=== PATIENT | female | born 1990 | race Caucasian/White ===

== ENCOUNTER 2021-10-26 05:39 | Inpatient (IN) | payer OTHER ==
[2021-10-26 07:03] LABS: ALBUMIN 2.8 g/dL (3.4-5.0); BILIRUBIN - TOTAL 0.4 mg/dL (0.2-1.0); BUN/CREAT RATIO (CALC) 10.9 RATIO; CREATININE 0.46 mg/dL (0.51-0.95); GLOBULIN (CALCULATION) 4.1 g/dL; POTASSIUM 2.7 mmol/L (3.5-5.1); TOTAL PROTEIN 6.9 g/dL (6.4-8.2)
[2021-10-26 07:16] LABS: HCT 30.4 % (37.0-47.0); HGB 10.6 g/dl (12.5-16.0); MCHC 34.9 g/dL (32.0-36.0); MCV 88.9 fL (78.0-100.0); MPV 12.3 fL (6.0-9.5); RBC 3.42 M/uL (4.20-5.40); RDW 13.1 % (11.5-14.0); WBC 14.5 K/uL (4.0-10.5)
[2021-10-26 07:18] LABS: BILIRUBIN NEGATIVE (NEGATIVE); BLOOD NEGATIVE Ery/uL (NEGATIVE); CLARITY CLEAR (CLEAR); COLOR YELLOW (YELLOW); GLUCOSE (U) NORMAL (NORMAL); LEUKOCYTES TRACE Leu/uL (NEGATIVE); NITRITE NEGATIVE (NEGATIVE); PROTEIN NEGATIVE (NEGATIVE); SPECIFIC GRAVITY 1.015 (1.001-1.030)
[2021-10-26 07:21] LABS: INR 0.99 (0.9-1.2); PROTHROMBIN TIME 12.5 SECONDS (11.8-13.4); PTT 26.4 SECONDS (24.4-34.7)
[2021-10-26 07:27] LABS: AMPHETAMINES NEGATIVE (NEGATIVE); BARBITURATES NEGATIVE (NEGATIVE); ECSTASY (MDMA) NEGATIVE (NEGATIVE); MARIJUANA (THC) NEGATIVE (NEGATIVE); METHADONE NEGATIVE (NEGATIVE); OPIATES NEGATIVE (NEGATIVE); OXYCODONE NEGATIVE (NEGATIVE)
[2021-10-26 07:33] LABS: BACTERIA 1+; URINARY RBC RARE
[2021-10-26 07:34] LABS: SQUAMOUS EPITHELIAL CELLS 20-50
[2021-10-26 16:52] LABS: BILIRUBIN NEGATIVE (NEGATIVE); BLOOD NEGATIVE Ery/uL (NEGATIVE); CLARITY CLEAR (CLEAR); COLOR YELLOW (YELLOW); GLUCOSE (U) NORMAL (NORMAL); LEUKOCYTES NEGATIVE Leu/uL (NEGATIVE); NITRITE NEGATIVE (NEGATIVE); PROTEIN NEGATIVE (NEGATIVE); SPECIFIC GRAVITY 1.015 (1.001-1.030)
[2021-10-27 06:42] LABS: HCT 24.6 % (37.0-47.0); HGB 8.5 g/dl (12.5-16.0); MCH 31.1 pg (25.0-31.0); MCHC 34.6 g/dL (32.0-36.0); MCV 90.1 fL (78.0-100.0); MPV 11.2 fL (6.0-9.5); RBC 2.73 M/uL (4.20-5.40); WBC 13.8 K/uL (4.0-10.5)
[2021-10-27 07:13] LABS: BILIRUBIN - TOTAL 0.2 mg/dL (0.2-1.0); BUN/CREAT RATIO (CALC) 12.5 RATIO; CREATININE 0.56 mg/dL (0.51-0.95); GLOBULIN (CALCULATION) 3.1 g/dL; POTASSIUM 3.2 mmol/L (3.5-5.1); TOTAL PROTEIN 5.1 g/dL (6.4-8.2)
[2021-10-28] MEDS ORDERED: FEOSOL325 MG PO (11:14)
[2021-10-28] MEDS ORDERED: POTASSIUM CHLO20 ME2 PO (11:15)
[2021-10-28] MEDS ORDERED: MAG-OXIDE 400M400 MG PO (11:15)
[2021-10-28] MEDS ORDERED: KETOROLAC TROME10 MG PO (11:15)
[2021-10-28] MEDS ORDERED: VITAMIN D325 MC1 PO (11:16)
[2021-10-28] MEDS ORDERED: FOLIC ACID1 MG PO (11:16)
[2021-10-28] MEDS ORDERED: PRENATAL FORMU1 EACH PO (11:16)
[2021-10-28] MEDS ORDERED: COLACE100 MG PO (11:16)
== END 2021-10-28 13:35 | disposition home or self-care (01) | DRG 786 ==
LOC: FOB 05:39
PROVIDERS: ADMIT Specialist
PROC: 10D00Z1 Extraction of Products of Conception, Low, Open Approach (ICD-10-PCS; principal; 2021-10-26 07:30)
DX: O32.1XX0 Maternal care for breech presentation, not applicable or unspecified (principal); K83.1 Obstruction of bile duct; O26.62 Liver and biliary tract disorders in childbirth; Z37.0 Single live birth; Z3A.39 39 weeks gestation of pregnancy; O99.284 Endocrine, nutritional and metabolic diseases complicating childbirth; E87.6 Hypokalemia; E83.42 Hypomagnesemia
CPT/HCPCS: 36415; 80053; 80305; 81001; 81003; 83735; 84132; 85610; 85730; 86850; 86900; 86901; 93005; J0690; J1200; J1885; J2274; J2300; J2370; J3475; J3480; J7040; J7120; Q0163